=== PATIENT | male | born 1980 | race Two or more races ===

== ENCOUNTER 2019-09-26 13:34 | Emergency (ER) | payer OTHER ==
[~2019-09-26] VITALS: Ht 180.3 cm; Wt 101.6 kg
[2019-09-26] MEDS ORDERED: ZIAC 10/6.25 MG1 TAB (14:11)
== END 2019-09-26 18:26 | disposition home or self-care (01) ==
LOC: ER 13:34
DX: B34.9 Viral infection, unspecified (principal); K59.09 Other constipation